=== PATIENT | male | born 1970 | race Caucasian/White ===

== ENCOUNTER 2023-12-22 20:11 | Emergency (ER) | payer BC, SELFPAY ==
[2023-12-22] MEDS ORDERED: Bacitracin 1 PK ONE (20:32)
[2023-12-22] MEDS ORDERED: Boostrix 0.5 ML (Tdap) VIAL (>/=7 yrs of age) ONE (20:32)
== END 2023-12-22 21:08 | disposition home or self-care (01) ==
LOC: NAV ERS 20:11
DX: S61.511A Laceration without foreign body of right wrist, initial encounter (principal); R03.0 Elevated blood-pressure reading, without diagnosis of hypertension; E11.9 Type 2 diabetes mellitus without complications; I10 Essential (primary) hypertension; E78.5 Hyperlipidemia, unspecified; Z87.891 Personal history of nicotine dependence; Z23 Encounter for immunization; Z79.899 Other long term (current) drug therapy; Z79.84 Long term (current) use of oral hypoglycemic drugs; W26.0XXA Contact with knife, initial encounter
CPT/HCPCS: 12001; 90471; 90715

== ENCOUNTER 2023-12-29 18:16 | Emergency (ER) | payer BC, SELFPAY | END 2023-12-29 18:58 | disposition home or self-care (01) | LOC: NAV ERS 18:16 | DX: S61.511D Laceration without foreign body of right wrist, subsequent encounter (principal); E11.9 Type 2 diabetes mellitus without complications; I10 Essential (primary) hypertension; Z87.891 Personal history of nicotine dependence; X58.XXXD Exposure to other specified factors, subsequent encounter ==